=== PATIENT | male | born 1990 | race Caucasian/White ===

== ENCOUNTER 2020-04-03 21:20 | Emergency (ER) | payer OTHER ==
[~2020-04-03] VITALS: Ht 177.8 cm; Wt 74.8 kg
[2020-04-03 21:42] VITALS: BP 135/83
[2020-04-03] MEDS ORDERED: Lidocaine 1% MPF 10mg/ml 5ml INJ ONE (21:45)
[2020-04-03] MEDS ORDERED: Tetanus/Diptheria/Pertussis IM ONE (21:45)
[2020-04-03] MEDS ORDERED: CEPHALEXIN500 MG ORAL (22:23)
--- NOTE | 2020-04-03 22:23 | Emergency Room Report ---
History of Present Illness General Chief Complaint: Laceration Source: Patient Present Illness HPI Is a 29-year-old male who is right-hand dominant. He presents with chief complaint of hand laceration. He was trying to cut open a coconut and the knife slipped and he sustained a laceration to his left hand. This occurred just prior to arrival. Bleeding controlled. Pain is 7 out of 10. Worse with movement. Better with rest. No other injury. Tetanus is not up-to-date. Allergies: Coded Allergies: No Known Allergies (Unverified , 04/03/20) COVID-19 Screening Contact w/high risk pt: No Experienced COVID-19 symptoms?: No COVID-19 Testing performed QUALITY CONTROL CHEMIST: No Patient History Past Medical History: see triage record, old chart reviewed Past Surgical History: none Pertinent Family History: none Social History: Denies: smoking Immunizations: other Reviewed Nursing Documentation: PMH: Agreed; PSxH: Agreed Nursing Documentation-PMH Past Medical History: No History, Except For Hx Asthma: Yes Review of Systems Eye: Denies: eye pain, blurred vision ENT: Denies: ear pain, nose congestion, throat swelling Respiratory: Denies: cough, shortness of breath Cardiovascular: Denies: chest pain, palpitations Gastrointestinal: Denies: abdominal pain, diarrhea, nausea, vomiting Musculoskeletal: Denies: back pain, joint pain Skin: Denies: rash Neurological: Denies: headache, numbness Endocrine: Denies: increased thirst, increased urine Hematologic/Lymphatic: Denies: easy bruising All Other Systems: negative except mentioned in HPI Physical Exam Vital Signs Date Time Temp Pulse Resp B/P (MAP) Pulse Ox O2 Delivery O2 Flow Rate FiO2 04/03/20 21:27 97.9 96 16 135/83 (100) 97 Room Air Vitals unremarkable Sp02 EP Interpretation: reviewed, normal General Appearance: well appearing, no apparent distress, alert Head: normocephalic, atraumatic Eyes: bilateral eye PERRL, bilateral eye EOMI ENT: hearing grossly normal, normal pharynx Neck: full range of motion, supple, no meningismus Respiratory: chest non-tender, lungs clear, normal breath sounds Cardiovascular #1: regular rate, rhythm, no murmur Gastrointestinal: normal bowel sounds, non tender, no mass, no organomegaly, no bruit, non-distended Musculoskeletal: back normal, normal range of motion, gait/station normal, other - Left hand: There is a 4 cm laceration to the dorsum of the hand by the first webspace. No foreign body. No tendon laceration. Sensation normal. Psychiatric: mood/affect normal Procedures Laceration/Wound Repair Laceration/Wound Repair : Consent: Verbal Wound Location: upper extremity Wound's Depth, Shape: linear Wound Length (cm): 4 Wound Explored: clean Irrigated w/ Saline (ccs): 1000 Betadine Prep?: Yes Anesthesia: 1% Lidocaine Volume Anesthetic (ccs): 4 Wound Repaired With: sutures Suture Size/Type: 4:0, proline Number of Sutures: 5 Patient Tolerated: Well Complications: None Medical Decision Making Diagnostic Impression: Primary Impression: Laceration ER Course This patient presents with a hand laceration. No tendon or nerve involvement. No ligament involvement. Last Vital Signs Date Time Temp Pulse Resp B/P (MAP) Pulse Ox O2 Delivery O2 Flow Rate FiO2 04/03/20 21:42 97.9 87 16 135/83 97 Room Air Status: improved Disposition: HOME, SELF-CARE Condition: Stable Scripts Cephalexin* (KEFLEX*) 500 Mg Capsule 500 MG ORAL TID, #21 CAP Prov: Michael Perez MD 04/03/20 Referrals: NOT CHOSEN [facility]/MD,REFERRING (PCP) Patient Instructions: Laceration Care, Adult Additional Instructions: Keep wound clean. Follow-up with your doctor in 7 to 10 days for suture removal. Return if symptoms worsen. Michael Perez MD Apr 03, 2020 22:23
[2020-04-03 22:40] VITALS: BP 135/83
== END 2020-04-03 22:30 | disposition home or self-care (01) ==
LOC: EMR 21:45
DX: S61.412A Laceration without foreign body of left hand, initial encounter (principal); Z23 Encounter for immunization; J45.909 Unspecified asthma, uncomplicated; W26.0XXA Contact with knife, initial encounter; Y92.9 Unspecified place or not applicable
CPT/HCPCS: 12002; 90471; 90715; Z7502; 99282